=== PATIENT | female | born 1965 | race Caucasian/White ===

== ENCOUNTER 2017-01-06 15:48 | Emergency (ER) | payer BC ==
[2017-01-06 17:20] VITALS: RESP 18
[2017-01-06] MEDS ORDERED: IBUPROFEN 600 MG TAB PO STA (17:48)
--- NOTE | 2017-01-06 18:07 | ED ---
General Adult HPI - General Chief complaint: Head Injury Stated complaint: Fall/ Headache Time Seen by Provider: 01/06/17 17:40 Source: patient, RN notes reviewed Mode of arrival: ambulatory Limitations: no limitations - History of Present Illness Initial comments: This is a 51-year-old female who presents to the emergency department with chief complaint of head injury. Patient states that on Friday evening she fell face first onto a wood floor. She states that she lost consciousness for a few seconds. She reports bruising on her right cheek bone and right eye. She states that since the incident she has been experiencing constant headaches, difficulty concentrating, blurred vision and nausea. Patient states she is worried because she has a history of epilepsy. She denies any other injury or trauma. Denies fever, chills, chest pain, shortness of breath, abdominal pain, nausea or vomiting, constipation or diarrhea, dysuria or hematuria, numbness or tingling. - Related Data Allergies Allergy/AdvReac Type Severity Reaction Status Date / Time amoxicillin [From Augmentin] Allergy Rash/Hives Verified 01/06/17 17:21 clavulanic acid Allergy Rash/Hives Verified 01/06/17 17:21 [From Augmentin] tetanus and diphtheria Allergy Rash/Hives Verified 01/06/17 17:21 toxoids acetaminophen AdvReac Rapid Verified 01/06/17 17:21 [From Darvocet-N] Heart Rate hydrocodone [From Vicodin] AdvReac Unknown Verified 01/06/17 17:21 ketorolac [From Toradol] AdvReac Unknown Verified 01/06/17 17:21 propoxyphene AdvReac Rapid Verified 01/06/17 17:21 [From Darvocet-N] Heart Rate tramadol AdvReac Unknown Verified 01/06/17 17:21 Review of Systems ROS Statement: Those systems with pertinent positive or pertinent negative responses have been documented in the HPI. ROS Other: All systems not noted in ROS Statement are negative. Past Medical History Past Medical History: Pneumonia, Seizure Disorder Additional Past Medical History / Comment(s): Crohns disease History of Any Multi-Drug Resistant Organisms: None Reported Past Surgical History: Adenoidectomy, Cholecystectomy, Hysterectomy, Tonsillectomy Additional Past Surgical History / Comment(s): breast reduction on one side, laparotomy with removal of an ovary, total hysterectomy, bladder suspension, sphincter muscle repair, abdominoplasty, breast lift, Past Psychological History: Anxiety, Depression, PTSD Smoking Status: Never smoker Past Alcohol Use History: Rare Past Drug Use History: None Reported General Exam - General Exam Comments Initial Comments: General: Awake and alert, well-developed; in no apparent distress. HEENT: Head atraumatic, normocephalic. Pupils are equal, round and reactive to light. Extraocular movements intact. Oropharynx moist without erythema or exudate. Neck: Supple. Normal ROM. No adenopathy. Cardiovascular: Regular rate and rhythm. No murmurs, rubs or gallops. Chest symmetrical. Respiratory: Lungs clear to auscultation bilaterally. No wheezes, rales or rhonchi. Normal respiratory effort with no use of accessory muscles. Musculoskeletal: Normal ROM, no tenderness. Ambulating normally. Pulses 2+ equal and palpable bilaterally. Skin: [place], warm and dry without rashes or lesions. Neurological: Alert and oriented x3. CN II-XII grossly intact. Speech is fluent and answers are appropriate. No focal neuro deficits. Finger to nose testing normal. Rapid alternating movements normal. Strength 5/5 in bilateral upper and lower extremities. Heel to toe gait normal. Romberg negative. Psychiatric: Normal mood and affect. No overt signs of depression or anxiety noted. Limitations: no limitations Course Vital Signs 01/06/17 17:13 Temperature 97.3 F L Pulse Rate 60 Respiratory 18 Rate Blood Pressure 144/81 O2 Sat by Pulse 100 Oximetry Medical Decision Making - Medical Decision Making This is a 51 year old patient who presents to the emergency room with chief complaint of head injury. Head CT revealed no acute intracranial abnormalities. Findings were discussed with patient. She is in no acute distress at this time is feeling well. She is recommended to follow concussion protocol and to limit any activities that cause symptoms including headache, nausea, difficulty concentrating, vision changes or disorientation. Patient is recommended to follow up with her primary care provider in 1-2 days. She is in agreement to the plan and voices understanding. All questions were answered. - Radiology Data Radiology results: report reviewed CT brain without contrast findings: Ventricles have fairly normal size. There is no mass effect nor midline shift and there is no sign of intracranial hemorrhage. The calvarium is intact. Conclusion: Negative computed tomography scan of the brain. Disposition Clinical Impression: Concussion with loss of consciousness, Facial contusion Disposition: HOME SELF-CARE Condition: Good Instructions: Concussion (ED), Facial Contusion (ED) Additional Instructions: Please follow up with primary care provider within 1-2 days. Return to emergency department if symptoms should worsen or any concerns arise. Referrals: Abdiel Ham DO [Primary Care Provider] - 1-2 days Time of Disposition: 19:05
--- NOTE | 2017-01-06 18:44 | CT ---
EXAMINATION TYPE: CT brain wo con DATE OF EXAM: 01/06/2017 COMPARISON: NONE HISTORY: headache following fall hitting right side of head CT DLP: 1094 mGycm. Automated Exposure Control for Dose Reduction was Utilized. TECHNIQUE: CT scan of the head is performed without contrast. FINDINGS: Ventricles have fairly normal size. There is no mass effect nor midline shift and there is no sign of intracranial hemorrhage. The calvarium is intact. CONCLUSION: Negative CT scan of the brain.
[2017-01-06 19:11] VITALS: BP 132/78; PULSE 68; TEMP 97.2
== END 2017-01-06 19:11 | disposition home or self-care (01) ==
LOC: EC 15:48
DX: S06.0X1A Concussion with loss of consciousness of 30 minutes or less, initial encounter (principal); S00.83XA Contusion of other part of head, initial encounter; S00.11XA Contusion of right eyelid and periocular area, initial encounter; Z88.0 Allergy status to penicillin; Z88.5 Allergy status to narcotic agent; Z88.6 Allergy status to analgesic agent; Z88.7 Allergy status to serum and vaccine; W01.198A Fall on same level from slipping, tripping and stumbling with subsequent striking against other object, initial encounter; Y93.89 Activity, other specified
CPT/HCPCS: 70450; 99284